=== PATIENT | female | born 1950 | race Caucasian/White ===

== ENCOUNTER 2022-07-28 09:44 | Outpatient (CLI) | payer MEDICARE, OTHER ==
--- NOTE | 2022-07-28 11:44 | XRAY Report ---
PROCEDURE: Hip w/Pelvis 2-3V LT INDICATIONS: PAIN OF LEFT THIGH TECHNIQUE: AP pelvis with lateral view(s) of the left hip(s). COMPARISON: None. FINDINGS: Bones: No fractures or dislocations. Pelvic ring appears intact. No suspicious bony lesions. Mode rate bilateral degenerative hip joint space narrowing slightly more prominent on the left. No erosion s or subchondral sclerosis. Mild degenerative changes are present within the lower lumbar spine Soft tissues: The visualized bowel gas pattern is normal. No suspicious soft tissue calcifications. 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 Reviewed by: Angelina Enriquez MD on 07/28/2022 11:43 AM PST Approved by: Angelina Enriquez MD on 07/28/2022 11:43 AM PST Station ID: [id number]
--- NOTE | 2022-07-28 11:45 | XRAY Report ---
PROCEDURE: Lumbar Spine 2 View INDICATIONS: LUMBAR RADICULOPATHY TECHNIQUE: 2 views of the lumbar spine were acquired. COMPARISON: None. FINDINGS: Bones: 5 [id number] vertebrae are present. There is an overall appearance of lumbar straighten ing with trace retrolisthesis of L2 on L3. There is moderate to severe multilevel degenerative disc s pace narrowing most severe at L5-S1. Severe foraminal narrowing is present L5-S1, moderate to severe from L2-3 through L4-5. Anterior osteophytes are present most notable at L4 and L5. No vertebral body compression fractures. No suspicious bony lesions. Soft tissues: Overlying bowel gas pattern is normal. No suspicious soft tissue calcifications. IMPRESSION: Degenerative changes most severe at L5-S1. Reviewed by: Angelina Enriquez MD on 07/28/2022 11:44 AM PST Approved by: Angelina Enriquez MD on 07/28/2022 11:44 AM PST Station ID: [id number]
== END 2022-07-28 09:45 | disposition home or self-care (01) ==
LOC: DI.S 09:44
PROVIDERS: ATTEND Nurse Practitioner Family
DX: M16.0 Bilateral primary osteoarthritis of hip (principal); M47.816 Spondylosis without myelopathy or radiculopathy, lumbar region; M47.817 Spondylosis without myelopathy or radiculopathy, lumbosacral region